=== PATIENT | female | born 1965 | race Caucasian/White ===

== ENCOUNTER 2016-07-30 04:23 | Emergency (ER) | payer SELFPAY ==
--- NOTE | 2016-07-30 05:29 | ED CLINICAL REPORT ---
Clinical Report - Physicians/Mid Levels [facility] [address] [place] [address] 07/30/2016 4:25 Patient: RAMESH CROSS Time Seen: 04:28 Jul 30 2016. Arrived- By private vehicle. Historian- patient. CPT: ER phys charges level 4 (#[id number]). HISTORY OF PRESENT ILLNESS Chief Complaint: INJURY TO HEAD. Location of injuries- head (left groin.). The injury occurred yesterday. Fell (Hit head and left groin on zip line wire.). Occurred at an athletic field. The patient complains of moderate pain. The patient sustained a blow to the head. REVIEW OF SYSTEMS No numbness, hearing loss, nausea, chest pain or depression. No weakness, vomiting, difficulty breathing, bladder dysfunction or laceration. All systems otherwise negative, except as recorded above. PAST HISTORY See nurses notes. Tubes in eares . Vaginal hernia . Tetanus immunization status is up-to-date. Medications: None. Allergies: No Known Drug Allergy. SOCIAL HISTORY Heavy tobacco smoker (cigarette)- less than 1 pack per day. No alcohol use or drug use. ADDITIONAL NOTES The nursing notes have been reviewed. PHYSICAL EXAM Vital Signs: 07/30/2016 04:28 BP: 145/65. HR: 90. RR: 20. O2 saturation: 98%. Temp: 98.2 F. Appearance: Alert. Patient in mild distress. Head: No swelling of head. (No evidence of facial or head injury.). Eyes: Pupils equal, round and reactive to light. ENT: No dental injury. Pharynx normal. Neck: Painless ROM. Neck non-tender. CVS: Heart sounds normal. Pulses normal. Respiratory: Breath sounds normal. Chest nontender. Abdomen: Soft and nontender. Back: No tenderness. ROM normal. Skin: Skin intact. Skin warm. Normal skin color. Extremities: Moderate abrasions present (Left groin.). Neuro: Oriented X 3. Mood/affect normal. Speech normal. No motor deficit. Normal gait. No sensory deficit. Reflexes normal. LABS, X-RAYS, AND EKG X-Rays: Pelvis negative. PROGRESS AND PROCEDURES Course of Care: vicodin 1 po Patient is stable. Symptoms better. Patient/family counseled. Disposition: Discharged. Condition: stable. CLINICAL IMPRESSION Multiple contusions with abrasion to the forehead. (left groin). No hematoma. INSTRUCTIONS Apply ice for 15-20 minutes three times a day for one days followed by moist heat 15-20 minutes three times a day for one weeks until better. No strenuous activity. Warnings: HEAD INJURY PRECAUTIONS: An observer must check on the patient every 4 hours for the next 24 hours to confirm that the patient responds as expected, is not confused, has no new weakness or numbness, and has no other problems. SEDATIVE MEDICATION: You were given sedative medication during your visit. Do not drive or operate dangerous machinery. GENERAL WARNINGS: Return or contact your physician immediately if your condition worsens or changes unexpectedly, if not improving as expected, or if other problems arise. Prescription Medications: Hydrocodone/APAP 5mg/325mg: take 1 to 2 orally every 6 hours as needed for pain. Dispense fifteen (15). No refills. Ibuprofen 600mg tablets: take 1 tablet orally every 8 hours as needed for pain. Dispense thirty (30). No refills. Follow-up: Follow up with your doctor in five days. Call for an appointment. Understanding of the discharge instructions verbalized by patient and family. (Electronically signed by Saroj Barclay MD 08/01/2016 7:51)
--- NOTE | 2016-07-30 05:29 | ED CLINICAL REPORT ---
Clinical Report - Physicians/Mid Levels [facility] [address] [place] [address] 07/30/2016 4:25 Patient: RAMESH CROSS Time Seen: 04:28 Jul 30 2016. Arrived- By private vehicle. Historian- patient. CPT: ER phys charges level 4 (#[id number]). HISTORY OF PRESENT ILLNESS Chief Complaint: INJURY TO HEAD. Location of injuries- head (left groin.). The injury occurred yesterday. Fell (Hit head and left groin on zip line wire.). Occurred at an athletic field. The patient complains of moderate pain. The patient sustained a blow to the head. REVIEW OF SYSTEMS No numbness, hearing loss, nausea, chest pain or depression. No weakness, vomiting, difficulty breathing, bladder dysfunction or laceration. All systems otherwise negative, except as recorded above. PAST HISTORY See nurses notes. Tubes in eares . Vaginal hernia . Tetanus immunization status is up-to-date. Medications: None. Allergies: No Known Drug Allergy. SOCIAL HISTORY Heavy tobacco smoker (cigarette)- less than 1 pack per day. No alcohol use or drug use. ADDITIONAL NOTES The nursing notes have been reviewed. PHYSICAL EXAM Vital Signs: 07/30/2016 04:28 BP: 145/65. HR: 90. RR: 20. O2 saturation: 98%. Temp: 98.2 F. Appearance: Alert. Patient in mild distress. Head: No swelling of head. (No evidence of facial or head injury.). Eyes: Pupils equal, round and reactive to light. ENT: No dental injury. Pharynx normal. Neck: Painless ROM. Neck non-tender. CVS: Heart sounds normal. Pulses normal. Respiratory: Breath sounds normal. Chest nontender. Abdomen: Soft and nontender. Back: No tenderness. ROM normal. Skin: Skin intact. Skin warm. Normal skin color. Extremities: Moderate abrasions present (Left groin.). Neuro: Oriented X 3. Mood/affect normal. Speech normal. No motor deficit. Normal gait. No sensory deficit. Reflexes normal. LABS, X-RAYS, AND EKG X-Rays: Pelvis negative. PROGRESS AND PROCEDURES Course of Care: vicodin 1 po Patient is stable. Symptoms better. Patient/family counseled. Disposition: Discharged. Condition: stable. CLINICAL IMPRESSION Multiple contusions with abrasion to the forehead. (left groin). No hematoma. INSTRUCTIONS Apply ice for 15-20 minutes three times a day for one days followed by moist heat 15-20 minutes three times a day for one weeks until better. No strenuous activity. Warnings: HEAD INJURY PRECAUTIONS: An observer must check on the patient every 4 hours for the next 24 hours to confirm that the patient responds as expected, is not confused, has no new weakness or numbness, and has no other problems. SEDATIVE MEDICATION: You were given sedative medication during your visit. Do not drive or operate dangerous machinery. GENERAL WARNINGS: Return or contact your physician immediately if your condition worsens or changes unexpectedly, if not improving as expected, or if other problems arise. Prescription Medications: Hydrocodone/APAP 5mg/325mg: take 1 to 2 orally every 6 hours as needed for pain. Dispense fifteen (15). No refills. Ibuprofen 600mg tablets: take 1 tablet orally every 8 hours as needed for pain. Dispense thirty (30). No refills. Follow-up: Follow up with your doctor in five days. Call for an appointment. Understanding of the discharge instructions verbalized by patient and family. (Electronically signed by Saroj Barclay MD 08/01/2016 7:51)
--- NOTE | 2016-07-30 05:29 | ED ORDER SUMMARY ---
..... Patient: RAMESH CROSS OrderSheet [facility] VisitID: [id number] [place] [address] 51y, F Registration Date/Time: 07/30/2016 ORDER SHEET Weight: 46.2 kg (stated) Allergies: No Known Drug Allergy GENERAL ORDERS: Pelvis 3V or more Urgent (04:35 07/30/2016 Rosalino ARGUETA) (4:50 RFay) MEDICATION ORDERS: Hydrocodone-APAP PO 5/325 mg (NOW) (05:27 07/30/2016 Rosalino ARGUETA) (5:31 [facility] IV FLUIDS: ORDER SHEET NOTES: [Electronically signed by Ashli Peña R.N. (06:04 07/30/2016)] [Electronically signed by Saroj Barclay MD (07:51 08/01/2016)] [Electronically locked/signed by Ashli Peña R.N. (06:04 07/30/2016)]
--- NOTE | 2016-07-30 05:29 | ED ORDER SUMMARY ---
..... Patient: RAMESH CROSS OrderSheet [facility] VisitID: [id number] [place] [address] 51y, F Registration Date/Time: 07/30/2016 ORDER SHEET Weight: 46.2 kg (stated) Allergies: No Known Drug Allergy GENERAL ORDERS: Pelvis 3V or more Urgent (04:35 07/30/2016 Rosalino ARGUETA) (4:50 RFay) MEDICATION ORDERS: Hydrocodone-APAP PO 5/325 mg (NOW) (05:27 07/30/2016 Rosalino ARGUETA) (5:31 [facility] IV FLUIDS: ORDER SHEET NOTES: [Electronically signed by Ashli Peña R.N. (06:04 07/30/2016)] [Electronically signed by Saroj Barclay MD (07:51 08/01/2016)] [Electronically locked/signed by Ashli Peña R.N. (06:04 07/30/2016)]
--- NOTE | 2016-07-30 05:29 | ED NURSING NOTES ---
Clinical Report - Nurses [facility] [address] [place] [address] 07/30/2016 4:25 Patient: RAMESH CROSS TRIAGE Triage time 04:Jul 30 2016. Acuity: LEVEL 3. Chief Complaint: SPORTS INJURY. CLARA COMA SCORE: Clara Coma Scale: 15- eyes open spontaneously (4); best verbal response- oriented x 4 (5); best motor response- obeys commands (6). --04:34 Ashli Peña R.N. 04:28 07/30/16. BP: 145/65. HR: 90. RR: 20. O2 saturation: 98%. Temp: 98.2 F. Pain level now 8/10. --04:34 Ashli Peña R.N. Weight: 46.2 kg stated. Height/Length: 60 inches Per Patient. BMI: 19.9. --04:32 Ashli Peña R.N. Medications None. --04:30 Ashli Peña R.N. Allergies No Known Drug Allergy. --04:30 Ashli Peña R.N. History Arrived by private vehicle. Historian: patient. Accompanied by friend. Location of injuries: face and genitalia. This occurred (500 PM). No loss of consciousness. No headache, neck pain, back pain, numbness or weakness. 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 Trauma team: (04:Jul 30 2016). Trauma activation: Modified Trauma Activation. Pre-hospital notification of patient arrival was not received. PAST MEDICAL HX: No history of diabetes mellitus, hypertension, heart disease or lung disease. Tetanus status: up-to-date. Immunizations: up-to-date. The patient is post-menopausal. SOCIAL HX: Current every day light tobacco smoker (cigarette)- less than 1/2 a pack per day. No alcohol use or drug use. SELF HARM ASSESSMENT: A self harm assessment was performed. The patient answered "no" to the question "Have you recently felt down, depressed, or hopeless?" and "Do you have thoughts of harming or killing yourself?". FALL RISK ASSESSMENT: Fall risk assessment completed. No fall risk identified. NUTRITIONAL RISK ASSESSMENT: The nutritional risk assessment revealed no deficiencies. FUNCTIONAL ASSESSMENT: Functional assessment: no impairments noted. LEARNING NEEDS ASSESSMENT: The learning needs assessment revealed no barriers. ABUSE ASSESSMENT: Abuse assessment: (yes) The patient was asked "Do you feel safe in your home?". SKIN INTEGRITY ASSESSMENT: Skin integrity risk assessment completed. No skin integrity risk identified. --04:34 Ashli Peña R.N. PROBLEMS: Asthma. --04:32 Ashli Peña R.N. ADDITIONAL SURGERIES: Tubes in eares . Vaginal hurnia . --04:32 Ashli Peña R.N. Interventions ID band on patient. --04:34 Ashli Peña R.N. PHYSICAL ASSESSMENT Ambulatory to room. GENERAL / NEURO / PSYCH: Alert. Oriented X 4. Appears in pain, anxious and in distress. HEENT: Pupils equal, round and reactive to light. Head non-tender. RESPIRATORY: Respirations not labored. Chest nontender. Breath sounds within normal limits. CVS: Normal heart rate and rhythm. Pulses within normal limits. Capillary refill less than 2 seconds. GI / : Abdomen soft and nontender. EXTREMITIES: Extremities exhibit normal ROM. Neuro-vascular status intact to the extremity. SKIN: Skin is warm and dry. ( abrasion on groin area). --04:34 Ashli Peña R.N. NURSING PROGRESS NOTES The initial plan of care for this patient includes an assessment with efforts to address patient positioning, appropriate ambient lighting and comfortable environmental temperature; impairment of the musculoskeletal system. Cold pack applied. Patient gowned. Reassurance given. Call light placed in reach. Side rails up x 1. Bed placed in lowest position. Brakes of bed on. --04:34 Ashli Peña R.N. 05:31 07/30/2016 Hydrocodone-APAP (Hydrocodone-Acetaminophen) PO 5/325 mg Tablets 1 tab given. Allergies verified, confirmed 5 rights and sedative warning given to the patient. --05:31 Ashli Peña R.N. DISPOSITION / DISCHARGE Departure time: 05:33 Jul 30 2016. Condition at departure: improved. No learning barriers present. Discharge instructions provided and reviewed with the patient. Reviewed warnings. Reviewed medication(s). Treatments reviewed. Reviewed referrals. Patient verbalized understanding. Written instructions provided in [place]. The patient was discharged home and accompanied by inspector conveyor line. She left the Emergency Department ambulatory and via private vehicle. Warranty Clerk driving. --05:33 Ashli Peña R.N. 05:31 07/30/16. BP: 136/62. HR: 74. RR: 18. O2 saturation: 98%. Temp: 98.1 F. Pain level now 07/21. --05:33 Ashli Peña R.N. Locked/Released at 07/30/2016 6:04 by Ashli Peña R.N.
--- NOTE | 2016-07-30 05:29 | ED NURSING NOTES ---
Clinical Report - Nurses [facility] [address] [place] [address] 07/30/2016 4:25 Patient: RAMESH CROSS TRIAGE Triage time 04:Jul 30 2016. Acuity: LEVEL 3. Chief Complaint: SPORTS INJURY. CLARA COMA SCORE: Clara Coma Scale: 15- eyes open spontaneously (4); best verbal response- oriented x 4 (5); best motor response- obeys commands (6). --04:34 Ashli Peña R.N. 04:28 07/30/16. BP: 145/65. HR: 90. RR: 20. O2 saturation: 98%. Temp: 98.2 F. Pain level now 8/10. --04:34 Ashli Peña R.N. Weight: 46.2 kg stated. Height/Length: 60 inches Per Patient. BMI: 19.9. --04:32 Ashli Peña R.N. Medications None. --04:30 Ashli Peña R.N. Allergies No Known Drug Allergy. --04:30 Ashli Peña R.N. History Arrived by private vehicle. Historian: patient. Accompanied by friend. Location of injuries: face and genitalia. This occurred (500 PM). No loss of consciousness. No headache, neck pain, back pain, numbness or weakness. 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 Trauma team: (04:Jul 30 2016). Trauma activation: Modified Trauma Activation. Pre-hospital notification of patient arrival was not received. PAST MEDICAL HX: No history of diabetes mellitus, hypertension, heart disease or lung disease. Tetanus status: up-to-date. Immunizations: up-to-date. The patient is post-menopausal. SOCIAL HX: Current every day light tobacco smoker (cigarette)- less than 1/2 a pack per day. No alcohol use or drug use. SELF HARM ASSESSMENT: A self harm assessment was performed. The patient answered "no" to the question "Have you recently felt down, depressed, or hopeless?" and "Do you have thoughts of harming or killing yourself?". FALL RISK ASSESSMENT: Fall risk assessment completed. No fall risk identified. NUTRITIONAL RISK ASSESSMENT: The nutritional risk assessment revealed no deficiencies. FUNCTIONAL ASSESSMENT: Functional assessment: no impairments noted. LEARNING NEEDS ASSESSMENT: The learning needs assessment revealed no barriers. ABUSE ASSESSMENT: Abuse assessment: (yes) The patient was asked "Do you feel safe in your home?". SKIN INTEGRITY ASSESSMENT: Skin integrity risk assessment completed. No skin integrity risk identified. --04:34 Ashli Peña R.N. PROBLEMS: Asthma. --04:32 Ashli Peña R.N. ADDITIONAL SURGERIES: Tubes in eares . Vaginal hurnia . --04:32 Ashli Peña R.N. Interventions ID band on patient. --04:34 Ashli Peña R.N. PHYSICAL ASSESSMENT Ambulatory to room. GENERAL / NEURO / PSYCH: Alert. Oriented X 4. Appears in pain, anxious and in distress. HEENT: Pupils equal, round and reactive to light. Head non-tender. RESPIRATORY: Respirations not labored. Chest nontender. Breath sounds within normal limits. CVS: Normal heart rate and rhythm. Pulses within normal limits. Capillary refill less than 2 seconds. GI / : Abdomen soft and nontender. EXTREMITIES: Extremities exhibit normal ROM. Neuro-vascular status intact to the extremity. SKIN: Skin is warm and dry. ( abrasion on groin area). --04:34 Ashli Peña R.N. NURSING PROGRESS NOTES The initial plan of care for this patient includes an assessment with efforts to address patient positioning, appropriate ambient lighting and comfortable environmental temperature; impairment of the musculoskeletal system. Cold pack applied. Patient gowned. Reassurance given. Call light placed in reach. Side rails up x 1. Bed placed in lowest position. Brakes of bed on. --04:34 Ashli Peña R.N. 05:31 07/30/2016 Hydrocodone-APAP (Hydrocodone-Acetaminophen) PO 5/325 mg Tablets 1 tab given. Allergies verified, confirmed 5 rights and sedative warning given to the patient. --05:31 Ashli Peña R.N. DISPOSITION / DISCHARGE Departure time: 05:33 Jul 30 2016. Condition at departure: improved. No learning barriers present. Discharge instructions provided and reviewed with the patient. Reviewed warnings. Reviewed medication(s). Treatments reviewed. Reviewed referrals. Patient verbalized understanding. Written instructions provided in [place]. The patient was discharged home and accompanied by target man. She left the Emergency Department ambulatory and via private vehicle. Middle School Volleyball Coach driving. --05:33 Ashli Peña R.N. 05:31 07/30/16. BP: 136/62. HR: 74. RR: 18. O2 saturation: 98%. Temp: 98.1 F. Pain level now 07/21. --05:33 Ashli Peña R.N. Locked/Released at 07/30/2016 6:04 by Ashli Peña R.N.
--- NOTE | 2016-07-30 08:22 | DIAGNOSTIC IMAGING REPORT ---
PROCEDURE: XR PELVIS 3 OR MORE VIEWS INDICATION: TRAUMA/INJURY TECHNIQUE: Four views of the pelvis were acquired. COMPARISON: None. FINDINGS: Normal mineralization. No fractures. Normal sacroiliac, pubic symphysis, and femoral acetabular joints. Soft tissues are normal. No unusual calcifications. IMPRESSION: 1. Intact pelvis.
--- NOTE | 2016-08-01 07:52 | ED MAR SUMMARY ---
..... Medication Administration Record [address] [place] [address] Patient: RAMESH CROSS Visit ID: [id number] 51y, F Weight: 46.2 kg Height/Length: 60 in BMI: 19.9 ALLERGIES: No Known Drug Allergy Given 05:31 07/30/2016 Ashli Peña R.N. Medication Administered: HYDROCODONE-APAP [PO] (HYDROCODONE-ACETAMINOPHEN), Dose: 1 tab 5/325 mg Tablets PO. Medication Ordered: Hydrocodone-APAP PO 5/325 mg (NOW).
--- NOTE | 2016-08-01 07:52 | ED DISCHARGE INSTRUCTIONS ---
Patient: RAMESH CROSS General Instructions [facility] VisitID: [id number] [place] [address] 51y, F Registration Date/Time: 07/30/2016 Multiple contusions with abrasion to the forehead. (left groin). No hematoma. INSTRUCTIONS Apply ice for 15-20 minutes three times a day for one days followed by moist heat 15-20 minutes three times a day for one weeks until better. No strenuous activity. Warnings: HEAD INJURY PRECAUTIONS: An observer must check on the patient every 4 hours for the next 24 hours to confirm that the patient responds as expected, is not confused, has no new weakness or numbness, and has no other problems. SEDATIVE MEDICATION: You were given sedative medication during your visit. Do not drive or operate dangerous machinery. GENERAL WARNINGS: Return or contact your physician immediately if your condition worsens or changes unexpectedly, if not improving as expected, or if other problems arise. Prescription Medications: Hydrocodone/APAP 5mg/325mg: take 1 to 2 orally every 6 hours as needed for pain. Dispense fifteen (15). No refills. Ibuprofen 600mg tablets: take 1 tablet orally every 8 hours as needed for pain. Dispense thirty (30). No refills. Follow-up: Follow up with your doctor in five days. Call for an appointment. Understanding of the discharge instructions verbalized by patient and family. ADDITIONAL INFORMATION Contusion,Soft Tissue You have a CONTUSION, which is a bruise with swelling and some bleeding under the skin. There are no broken bones. This injury takes a few days to a few weeks to heal. Home Care: 1) Keep the injured part elevated to reduce pain and swelling. This is especially important during the first 48 hours. 2) Make an ice pack (ice cubes in a plastic bag, wrapped in a towel) and apply for 20 minutes every 1-2 hours the first day. Continue this 3-4 times a day until the pain and swelling goes away. 3) You may use acetaminophen (Tylenol) or ibuprofen (Motrin, Advil) to control pain, unless another pain medicine was prescribed. [ NOTE : If you have chronic liver or kidney disease or ever had a stomach ulcer or GI bleeding, talk with your doctor before using these medicines.] Follow Up with your doctor or this facility if you are not improving within the next THREE days. [NOTE: If X-rays were taken, they will be reviewed by a radiologist. You will be notified of any new findings that may affect your care.] Get Prompt Medical Attention if any of the following occur: -- Pain or swelling increases -- Injured arm or leg becomes cold, blue, numb or tingly -- Redness, warmth or drainage from the skin Scalp Contusion [No Wake-Up] A scalp contusion is a bruise with swelling and sometimes bleeding under the skin. The swelling should start to go down within two days. Although there is no sign of a serious injury at this time, symptoms may appear later. These could be a sign of a more serious problem (bruising or bleeding in the brain). Therefore, watch for the warning signs below. Home Care: During the next 24 hours someone must stay with you to check for the signs below. It is not necessary to stay awake or be awakened during the night. If you have swelling of the face or scalp, apply an ice pack (ice cubes in a plastic bag, wrapped in a towel) for 20 minutes. Do this every 1-2 hours until the swelling starts to go down. You may use acetaminophen (Tylenol) or ibuprofen (Motrin, Advil) to control pain, unless another pain medicine was prescribed. [ NOTE : If you have chronic liver or kidney disease or ever had a stomach ulcer or GI bleeding, talk with your doctor before using these medicines.] For the next 24 hours: Do not take alcohol, sedatives or medicines that make you sleepy. Do not drive or operate machinery. Avoid strenuous activities. No lifting or straining. If you have had any symptoms of a concussion today (nausea, vomiting, dizziness, confusion, headache, memory loss or if you were knocked out), do not return to sports or any activity that could result in another head injury until all symptoms are gone and you have been cleared by your doctor. A second head injury before fully recovering from the first one can lead to serious brain injury. Follow Up with your doctor if symptoms are not improving after 24 hours, or as directed. [NOTE: Any X-rays or CT scans taken will be reviewed by a radiologist. You will be notified of any new findings that may affect your care.] Get Prompt Medical Attention if any of the following occur: Repeated vomiting Severe or worsening headache or dizziness Unusual drowsiness, or unable to awaken as usual Confusion or change in behavior or speech, memory loss, blurred vision Convulsion (seizure) Increasing scalp or face swelling Redness, warmth or pus from the swollen area Fluid drainage or bleeding from the nose or ears Fever of 100.4F(38C) or higher, or as directed by your healthcare provider Head Injury, No Wake-Up (Adult) You have had a head injury. It does not appear serious at this time. Symptoms of a more serious problem (concussion, bruising, or bleeding in the brain) may appear later. Therefore, watch for the WARNING SIGNS listed below. Home Care: Your healthcare provider will tell you whether its okay to drive. If so, you can drive yourself home. For the next day or so, be careful when driving or using heavy machinery until you are sure you have no delayed symptoms. During the next 24 hours someone must stay with you to check for the signs below. It is not necessary to stay awake or be awakened during the night. If you have swelling of the face or scalp, apply an ice pack (ice cubes in a plastic bag, wrapped in a towel) for 20 minutes. Do this every 1-2 hours until the swelling starts to go down. Do not use aspirin or ibuprofen (Motrin, Advil) after a head injury.You may use acetaminophen (Tylenol)to control pain, unless another pain medicine was prescribed. [NOTE: If you have chronic liver or kidney disease or ever had a stomach ulcer or GI bleeding, talk with your doctor before using these medicines.] For the next 24 hours: Do not take alcohol, sedatives or medicines that make you sleepy. Avoid strenuous activities. No lifting or straining. If you have had any symptoms of a concussion today (nausea, vomiting, dizziness, confusion, headache, memory loss or if you were knocked out), do not return to sports or any activity that could result in another head injury until all symptoms are gone and you have been cleared by your doctor. A second head injury before fully recovering from the first one can lead to serious brain injury. Follow Up with your doctor if symptoms are not improving after 24 hours, or as directed. [NOTE: A radiologist will review any X-rays or CT scans that were taken. We will notify you of any new findings that may affect your care.] Get Prompt Medical Attention if any of the followingWARNING SIGNS occur: Repeated vomiting Severe or worsening headache or dizziness Unusual drowsiness, or unable to awaken as usual Confusion or change in behavior or speech, memory loss, blurred vision Convulsion (seizure) Increasing scalp or face swelling Redness, warmth or pus from the swollen area Fluid drainage or bleeding from the nose or ears You have been given the following additional information: Contusion, Soft Tissue Scalp Contusion, No Wake Up HEAD INJURY, No Wake-Up (Adult) No strenuous activity. (Electronically signed by Saroj Barclay MD 08/01/2016 7:51)
--- NOTE | 2016-08-01 07:52 | ED MED RECONCILIATION SUMMARY ---
Patient: RAMESH CROSS Medication Reconciliation Report [facility] VisitID: [id number] [place] [address] 51y, F Registration Date/Time: 07/30/2016 Weight: 46.2 kg Height/Length: 60 in. BMI: 19.9 ALLERGIES: No Known Drug Allergy The patient's Home Medications are listed below: NONE. The source(s) of the original Home Medication information: Not obtained. The following Medications were given to the patient in the Emergency Department: Hydrocodone-APAP [PO] PO 1 tab, administered: 07/30/2016 5:31:00 AM The following Medications were prescribed to the patient: Hydrocodone/APAP 5mg/325mg: take 1 to 2 orally every 6 hours as needed for pain. Dispense fifteen (15). No refills. -- Saroj Barclay MD Ibuprofen 600mg tablets: take 1 tablet orally every 8 hours as needed for pain. Dispense thirty (30). No refills. -- Saroj Barclay MD
--- NOTE | 2016-08-01 07:52 | ED MED RECONCILIATION SUMMARY ---
Patient: RAMESH CROSS Medication Reconciliation Report [facility] VisitID: [id number] [place] [address] 51y, F Registration Date/Time: 07/30/2016 Weight: 46.2 kg Height/Length: 60 in. BMI: 19.9 ALLERGIES: No Known Drug Allergy The patient's Home Medications are listed below: NONE. The source(s) of the original Home Medication information: Not obtained. The following Medications were given to the patient in the Emergency Department: Hydrocodone-APAP [PO] PO 1 tab, administered: 07/30/2016 5:31:00 AM The following Medications were prescribed to the patient: Hydrocodone/APAP 5mg/325mg: take 1 to 2 orally every 6 hours as needed for pain. Dispense fifteen (15). No refills. -- Saroj Barclay MD Ibuprofen 600mg tablets: take 1 tablet orally every 8 hours as needed for pain. Dispense thirty (30). No refills. -- Saroj Barclay MD
--- NOTE | 2016-08-01 07:52 | ED MAR SUMMARY ---
..... Medication Administration Record [address] [place] [address] Patient: RAMESH CROSS Visit ID: [id number] 51y, F Weight: 46.2 kg Height/Length: 60 in BMI: 19.9 ALLERGIES: No Known Drug Allergy Given 05:31 07/30/2016 Ashli Peña R.N. Medication Administered: HYDROCODONE-APAP [PO] (HYDROCODONE-ACETAMINOPHEN), Dose: 1 tab 5/325 mg Tablets PO. Medication Ordered: Hydrocodone-APAP PO 5/325 mg (NOW).
== END 2016-07-30 05:38 | disposition home or self-care (01) ==
LOC: ED SRH 04:23
DX: S00.83XA Contusion of other part of head, initial encounter (principal); S30.1XXA Contusion of abdominal wall, initial encounter; W01.198A Fall on same level from slipping, tripping and stumbling with subsequent striking against other object, initial encounter; Y93.79 Activity, other specified sports and athletics; Y92.328 Other athletic field as the place of occurrence of the external cause; F17.210 Nicotine dependence, cigarettes, uncomplicated